=== PATIENT | male | born 2000 | race Caucasian/White ===

== ENCOUNTER 2023-05-08 07:45 | Emergency (ER) | payer OTHER ==
[~2023-05-08] VITALS: Ht 154.9 cm; Wt 82.0 kg
[2023-05-08 07:48] VITALS: TEMP 99.1; O2SAT 100
[2023-05-08 08:00] VITALS: BP 144/82; PULSE 88; RESP 16
[2023-05-08] MEDS ORDERED: IBUPROFEN 600MG TABLET PO ONE (08:00)
[2023-05-08] MEDS ORDERED: TETANUS, DIPHTHERIA, PERTUSSIS VAC/PF 0.5ML (>10YR OLD) IM ONE (08:00)
[2023-05-08] MEDS ORDERED: IBUP-2029 MT (09:04)
== END 2023-05-08 10:21 | disposition home or self-care (01) ==
LOC: ER 07:45
DX: S80.211A Abrasion, right knee, initial encounter (principal); V23.49XA Other motorcycle driver injured in collision with car, pick-up truck or van in traffic accident, initial encounter; Y93.89 Activity, other specified; Y92.89 Other specified places as the place of occurrence of the external cause; Y99.8 Other external cause status
CPT/HCPCS: 73560; 73610; 90715; 90471; 99284; Z7610